=== PATIENT | female | born 1980 | race Caucasian/White ===

== ENCOUNTER → 2016-10-16 | Outpatient (CLI) | payer OTHER ==
[~2016-10-16] MED LIST: CLON1TAB3 PO; INSDGI SC; NVLGI SC; ZOLP10TA6 PO
--- NOTE | 2016-10-16 10:01 | DIAGNOSTIC IMAGING REPORT ---
Wrist ultrasound EXTREMITY NONVASCULAR LIMITED CLINICAL HISTORY: M25.531 nodule TECHNIQUE: Ultrasonic evaluation right wrist COMPARISON STUDY: None FINDINGS: Slightly complex cystic nodule measuring 1.3 x 0.9 cm at the site of clinically palpable nodularity lateral right wrist. Possibility of an old hematoma versus a ganglion cyst is considered. IMPRESSION: Slightly complex cystic nodule at the site of clinically palpable nodularity right wrist. Diagnostic considerations include ganglion cyst versus old hematoma Electronically signed by: Nate Dao M.D. 10/16/2016 10:00 AM Dictated Date/Time: 10/16/2016 9:58 AM
== END | disposition home or self-care (01) ==
LOC: C.ULTR 09:39
PROVIDERS: ATTEND Family Medicine
DX: M25.531 Pain in right wrist (principal)